=== PATIENT | female | born 1995 | race African-American/Black ===

== ENCOUNTER 2019-08-23 20:14 | Emergency (ER) | payer MEDICAID ==
[~2019-08-23] VITALS: Ht 162.6 cm; Wt 88.0 kg
[2019-08-23] MEDS ORDERED: IBUPROFEN 800MG TABLET PO ONE (21:15)
[2019-08-23 22:39] VITALS: BP 125/79
== END 2019-08-24 | disposition home or self-care (01) ==
LOC: ER 20:14
DX: N64.59 Other signs and symptoms in breast (principal); R03.0 Elevated blood-pressure reading, without diagnosis of hypertension
CPT/HCPCS: 99282